=== PATIENT | male | born 1995 | race Two or more races ===

== ENCOUNTER 2018-03-22 12:53 | Day surgery (SDC) | payer OTHER ==
[~2018-03-22 12:53] MED LIST: CEFAZOLIN 2 GM/D5W RTU 2 GM/50 ML RTUPB IV SCH
[2018-03-22] MEDS ORDERED: LIDOCAINE 2% INJ-PF (20 MG/ML) 10 ML AMPUL ONE (13:32)
[2018-03-22] MEDS ORDERED: PROPOFOL INJ 200 MG/20 ML VIAL IV ONE ×2 (13:33→14:48)
[2018-03-22] MEDS ORDERED: FENTANYL CITRATE INJ/PF 100 MCG/2 ML AMPUL ONE ×2 (13:33→14:47)
[2018-03-22] MEDS ORDERED: MIDAZOLAM 2 MG/2 ML INJ ONE ×3 (13:33→14:48)
[2018-03-22] MEDS ORDERED: BUPIVACAINE HCL 0.5 % INJ/PF 30 ML SDV ONE (13:58)
[2018-03-22] MEDS ORDERED: RINGERS SOLUTION,LACTATED 1,000 ML IV ONE (14:00)
[2018-03-22] MEDS ORDERED: MORPHINE SULFATE 10 MG/ML INJ ONE (14:48)
[2018-03-22] MEDS ORDERED: MORPHINE SULFATE 10 MG/ML INJ IV PRN (15:13)
[2018-03-22] MEDS ORDERED: MEPERIDINE HCL/PF INJ 25 MG/1 ML DISP.SYRIN IV PRN (15:13)
[2018-03-22] MEDS ORDERED: PROMETHAZINE HCL INJ 25 MG/1 ML VIAL IV PRN ×2 (15:13)
[2018-03-22] MEDS ORDERED: DIPHENHYDRAMINE HCL 50 MG/ML VIAL IV PRN (15:13)
[2018-03-22] MEDS ORDERED: OXYCODONE-ACETAMINOPHEN 5-325 MG TABLET PO PRN ×3 (15:13→15:27)
[2018-03-22] MEDS ORDERED: FENTANYL CITRATE INJ/PF 100 MCG/2 ML AMPUL IV PRN ×4 (15:13→15:27)
--- NOTE | 2018-03-22 15:26 | Operative Report ---
Operative Report DATE OF SURGERY: 03/22/18 PREOPERATIVE DIAGNOSIS: Right first metacarpal Conner's fracture POSTOPERATIVE DIAGNOSIS: Same OPERATION: Closed reduction percutaneous pinning right first metacarpal Conner' s fracture SURGEON: LOS WHITNEY ANESTHESIA: GA COMPLICATIONS: None ESTIMATED BLOOD LOSS: Minimal PROCEDURE: Indication for above procedure: 22-year-old male who sustained a fall onto a hyperextended right thumb approximately 7 days ago. Patient was seen at the where x-rays demonstrated Conner's fracture of the thumb metacarpal. Patient was sent [facility] [place] further evaluation and treatment. We discussed treatment options including operative versus nonoperative intervention. After discussing risks and benefits of both joint decision was made to proceed with operative intervention. Procedure In Detail: Patient was seen and evaluated in the preoperative holding area. The RIGHT upper extremity was initialized and marked. Patient received 2g of Ancef IV for bacterial prophylaxis. Patient was taken back to the operative room where transferred to the operative table and placed under general anesthesia. Once they were adequately anesthetized a nonsterile tourniquet was placed on the upper extremity. A surgical team debriefing was performed ensuring all instrumentation was available, the surgical procedure was discussed with possible concerns reviewed. The upper extremity was prepped with chlorhexidine and alcohol and draped in a sterile fashion. A timeout was done identifying correct patient, procedure and extremity everyone in attendance agree with this and verbalized no concerns. The extremity was exsanguinated the tourniquet was inflated to 250 mmHg. Closed reduction was performed obtaining longitudinal traction, abduction and pronation C-arm fluoroscopy was obtained demonstrating improved alignment of the intra-articular fracture with less than 1 mm of displacement/step-off no evidence of diastases. I then placed a 0.045 K wire from the large metacarpal fragment into the small volar fragment to obtain fixation. I then placed a second 0.045 K wire from the thumb metacarpal into the trapezium and portion of the trapezoid obtaining good bony fixation. C-arm fluoroscopy was obtained demonstrating improved articular alignment no evidence of residual subluxation and minimal displacement less than 1 mm. With mild stress there is no evidence of fracture instability. Pins were then cut and bent above the skin and Jurgan's ball placed. 10 cc of 0.5% Marcaine with epinephrine was injected for postoperative pain control. Patient was placed in a well-padded thumb spica splint maintaining neutral position. Sponge counts, instrument counts, needle counts counts were correct. Patient was then awoken from anesthesia. Transferred from the operating room table to the operating room stretcher. There was no intraoperative complications patient tolerated procedure well stable to PACU. Postoperative plan: Patient will follow-up the office in 2 weeks at which point we will obtain radiographs of his thumb. Patient will be then placed in a thumb spica cast. Plan will be to proceed with pin removal 6 weeks postoperatively the patient will begin range of motion exercises at that time.
[2018-03-22] MEDS ORDERED: ONDANSETRON HCL INJ/PF 4 MG/2 ML SDV ONE (15:27)
--- NOTE | 2018-03-22 15:27 | Discharge Summary ---
Discharge Summary (SDC) - Discharge Final Diagnosis: Closed reduction percutaneous pinning right first metacarpal Conner's fracture Date of Surgery: 03/22/18 Discharge Date: 03/22/18 Condition: Good Treatment or Instructions: Schedule Follow Up w/ Dr. Alejandro Calderon @ [facility] to be seen in 10-14 days or as scheduled [place]: [place]: [place]: Ice and elevate Keep splint clean/dry/intact, do not remove. If your fingers become numb please unwrap the Buzz wrap but leave the splint in place, if the sensation does not return within 30 minutes please return to the emergency department. May begin finger range of motion of the other digits Please use ibuprofen (Motrin or Advil) 600-800 mg every 8 hours as needed for pain or fever DO NOT TAKE w/ TORADOL may use once TORADOL complete. You may also use acetaminophen (Tylenol) 1000 mg every 4-6 hours as needed for pain or fever. Please be aware that many medications contain acetaminophen, do not exceed a total of 1000 mg of acetaminophen every 6 hours. If ibuprofen and acetaminophen are not sufficient for your pain you may take the Percocet/Clever. Please be aware that the Percocet/Clever does contain Tylenol. Stool softener of choice when on pain medication. Prescriptions: Oxycodone HCl/Acetaminophen [Percocet 5-325 mg Tablet] 1 - 2 tab PO ASDIR PRN # 25 tablet PRN Reason: Discharge Diet: As Tolerated Respiratory Treatments at Home: Deep Breathing/Coughing Discharge Activity: No Lifting Over 10 Pounds, No Lifting/Push/Pulling Report the Following to Your Physician Immediately: Fever over 101 Degrees, Unusual Bleeding, Redness, Swelling, Warmth, Increased Soreness
--- NOTE | 2018-03-22 16:37 | RADIOLOGY REPORT (SQ) ---
EXAM DESCRIPTION: NO CHG FLUORO; FINGER RIGHT COMPLETED DATE/TIME: 03/22/2018 3:32 pm REASON FOR STUDY: CLOSED REDUCTION RIGHT THUMB WITH K WIRE COMPARISON: None. FLUOROSCOPY TIME: 56 seconds 7 Images saved to PACS LIMITATIONS: None. PROCEDURE: K-wire reduction of the thumb base fracture. FINDINGS: Images document placement of wires in the basis for 1st metacarpal. IMPRESSION: K-wire reduction of thumb base fracture. Refer to operative note for further informatio n. COMMENT: PQRS 6045F: Fluoroscopy time of the procedure is documented in the report. TECHNICAL DOCUMENTATION: JOB ID: [id number] [employer]- All Rights Reserved Reading location - IP/workstation name: [email or web address]
--- NOTE | 2018-03-22 16:37 | RADIOLOGY REPORT (SQ) ---
EXAM DESCRIPTION: NO CHG FLUORO; FINGER RIGHT COMPLETED DATE/TIME: 03/22/2018 3:32 pm REASON FOR STUDY: CLOSED REDUCTION RIGHT THUMB WITH K WIRE COMPARISON: None. FLUOROSCOPY TIME: 56 seconds 7 Images saved to PACS LIMITATIONS: None. PROCEDURE: K-wire reduction of the thumb base fracture. FINDINGS: Images document placement of wires in the basis for 1st metacarpal. IMPRESSION: K-wire reduction of thumb base fracture. Refer to operative note for further informatio n. COMMENT: PQRS 6045F: Fluoroscopy time of the procedure is documented in the report. TECHNICAL DOCUMENTATION: JOB ID: [id number] [facility]- All Rights Reserved Reading location - IP/workstation name: [email or web address]
[2018-03-22] MEDS ORDERED: GLYCOPYRROLATE 1 MG/5 ML SYRINGE ONE (16:40)
[2018-03-22 17:50] VITALS: BP 124/77
== END 2018-03-22 17:35 | disposition home or self-care (01) ==
LOC: OROUT 12:53
PROVIDERS: ATTEND Orthopaedic Surgery
DX: S62.211A Bennett's fracture, right hand, initial encounter for closed fracture (principal); X58.XXXA Exposure to other specified factors, initial encounter
CPT/HCPCS: 73140; 26608; J2250; J3490 ×3; J3010; J2704; J0690; 01820; J2270